=== PATIENT | male | born 1965 | race Caucasian/White ===

== ENCOUNTER → 2016-09-11 | Outpatient (CLI) | payer OTHER ==
[~2016-09-11] MED LIST: ABIL15TA2 PO; BUSP10 PO; CITA40 PO; LAMO100 PO; TRAZ100T4 PO; WELL150T PO
== END ==
LOC: CLAB 11:12
PROVIDERS: ATTEND Family Medicine
DX: F10.20 Alcohol dependence, uncomplicated (principal)
CPT/HCPCS: 36415; 82140